=== PATIENT | female | born 1970 | race Caucasian/White ===

== ENCOUNTER 2016-08-27 01:08 | Emergency (ER) | payer OTHER ==
[2016-09-03] MEDS ORDERED: LORTAB 7.5-3251 EACH PO (10:36)
[2016-09-03] MEDS ORDERED: ZOFRAN4 MG PO (10:37)
[2016-09-03] MEDS ORDERED: DOCUSATE SODIU250 MG PO (16:51)
[2016-09-03] MEDS ORDERED: LOVENOX SY40 MG/0.4 SQ (16:52)
[2016-09-03] MEDS ORDERED: ZOFRAN 4 MG TAB4 MG PO (16:53)
[2016-09-03] MEDS ORDERED: PERCOCET 5-3251 EACH PO (16:54)
== END 2016-08-27 07:48 | disposition home or self-care (01) ==
LOC: ER1 01:08
DX: S82.851A Displaced trimalleolar fracture of right lower leg, initial encounter for closed fracture (principal); S92.251A Displaced fracture of navicular [scaphoid] of right foot, initial encounter for closed fracture; I48.91 Unspecified atrial fibrillation; F17.210 Nicotine dependence, cigarettes, uncomplicated; W10.9XXA Fall (on) (from) unspecified stairs and steps, initial encounter; Y93.01 Activity, walking, marching and hiking; Y92.009 Unspecified place in unspecified non-institutional (private) residence as the place of occurrence of the external cause
CPT/HCPCS: 29515; 73564; 73590; 73610; 73630; 73700; 93005; 96374; 96375; 96376; 99284; J2270; J2405

== ENCOUNTER 2016-08-30 11:21 | Emergency (ER) | payer OTHER ==
[2016-09-03] MEDS ORDERED: LORTAB 7.5-3251 EACH PO (10:36)
[2016-09-03] MEDS ORDERED: ZOFRAN4 MG PO (10:37)
[2016-09-03] MEDS ORDERED: DOCUSATE SODIU250 MG PO (16:51)
[2016-09-03] MEDS ORDERED: LOVENOX SY40 MG/0.4 SQ (16:52)
[2016-09-03] MEDS ORDERED: ZOFRAN 4 MG TAB4 MG PO (16:53)
[2016-09-03] MEDS ORDERED: PERCOCET 5-3251 EACH PO (16:54)
== END 2016-08-30 13:00 | disposition home or self-care (01) ==
LOC: ER1 11:21
DX: Z76.0 Encounter for issue of repeat prescription (principal); Z90.49 Acquired absence of other specified parts of digestive tract; S82.891A Other fracture of right lower leg, initial encounter for closed fracture; F17.210 Nicotine dependence, cigarettes, uncomplicated; X58.XXXA Exposure to other specified factors, initial encounter
CPT/HCPCS: 96372; 99281; J2270

== ENCOUNTER → 2016-09-02 | Outpatient (CLI) | payer OTHER ==
[~2016-09-02] MED LIST: DOCUSATE SODIU250 MG PO; LORTAB 7.5-3251 EACH PO; LOVENOX SY40 MG/0.4 SQ; PERCOCET 5-3251 EACH PO; ROXICODONE5 MG PO; ZOFRAN 4 MG TAB4 MG PO; ZOFRAN4 MG PO
[2016-09-02 11:54] LABS: BUN/CREATININE RATIO 15 (0-10)
== END ==
LOC: OPSV2 10:43
PROVIDERS: Orthopaedic Surgery
DX: Z01.818 Encounter for other preprocedural examination (principal); Z01.812 Encounter for preprocedural laboratory examination; S82.851A Displaced trimalleolar fracture of right lower leg, initial encounter for closed fracture
CPT/HCPCS: 36415; 71020; 80048

== ENCOUNTER → 2016-09-03 | Day surgery (SDC) | payer OTHER ==
[~2016-09-03] VITALS: Ht 162.6 cm; Wt 89.8 kg
== END | disposition home or self-care (01) ==
LOC: OR 09:00
PROVIDERS: Orthopaedic Surgery
PROC: 0QSG04Z Reposition Right Tibia with Internal Fixation Device, Open Approach (ICD-10-PCS; 2016-09-03)
PROC: 0SBF4ZZ Excision of Right Ankle Joint, Percutaneous Endoscopic Approach (ICD-10-PCS; 2016-09-03)
PROC: 0QSJ04Z Reposition Right Fibula with Internal Fixation Device, Open Approach (ICD-10-PCS; principal; 2016-09-03 11:30)
PROC: 0QSG04Z Reposition Right Tibia with Internal Fixation Device, Open Approach (ICD-10-PCS; 2016-09-03 11:30)
DX: S82.851A Displaced trimalleolar fracture of right lower leg, initial encounter for closed fracture (principal); G43.909 Migraine, unspecified, not intractable, without status migrainosus; F17.210 Nicotine dependence, cigarettes, uncomplicated; Z83.3 Family history of diabetes mellitus; Z79.891 Long term (current) use of opiate analgesic; Z79.899 Other long term (current) drug therapy; Z90.49 Acquired absence of other specified parts of digestive tract; Z90.710 Acquired absence of both cervix and uterus; Z98.890 Other specified postprocedural states
CPT/HCPCS: 73610; 76000; C1713; J0171; J0690; J1200; J2250; J2270; J2405; J2795; J3010; J7120

== ENCOUNTER 2016-09-04 01:48 | Observation (INO) | payer OTHER ==
[~2016-09-04] VITALS: Ht 162.6 cm; Wt 88.2 kg
[~2016-09-04 01:48] MED LIST changes: -ROXICODONE5 MG PO
[2016-09-04 04:52] LABS: HEMOGLOBIN 14.2 gm/dl (12.3-15.3); RED BLOOD COUNT 4.53 M/UL (4.00-5.10); WHITE BLOOD COUNT 14.8 K/UL (4.5-11.0)
[2016-09-04 05:20] LABS: BUN/CREATININE RATIO 13 (0-10)
[2016-09-04] MEDS ORDERED: ROXICODONE5 MG PO (13:03)
== END 2016-09-04 16:33 | disposition home or self-care (01) ==
LOC: ER1 01:48 → ZEROF 04:31 → M/S 04:31
PROVIDERS: Physician Assistant; ADMIT Orthopaedic Surgery
DX: G89.18 Other acute postprocedural pain (principal); M25.571 Pain in right ankle and joints of right foot; F17.210 Nicotine dependence, cigarettes, uncomplicated; Z90.710 Acquired absence of both cervix and uterus; Z98.890 Other specified postprocedural states
CPT/HCPCS: 80053; 85025; 96361; 96372; 96374; 96375; 96376; 99284; G0378; J1650; J2060; J2270; J2405

== ENCOUNTER → 2020-05-16 | Outpatient (CLI) | payer OTHER ==
[~2020-05-16] MED LIST changes: +ABILIFY5 MG PO; +BELSOMRA15 MG PO; +BUSPAR 10MG10 MG PO; +CLINDAMYCIN 150 MG PO; +KEFLEX CAP 500500 MG PO; +METOPROLOL TART25 MG PO; +NEURONTIN300 MG PO; +NITROSTAT 0.40.4 MG SL; +NITROSTAT0.4 MG SL; +NORCO 5-325 TA1 EACH PO; +RANOLAZINE ER500 MG PO; +ROXICODONE5 MG PO; +ST. JOSEPH ASPI81 M1 PO; +ZESTRIL20 MG PO
== END ==
LOC: HEART 5 08:30
DX: I11.9 Hypertensive heart disease without heart failure (principal); I20.9 Angina pectoris, unspecified; I48.91 Unspecified atrial fibrillation; R00.2 Palpitations; R93.1 Abnormal findings on diagnostic imaging of heart and coronary circulation; R94.39 Abnormal result of other cardiovascular function study
CPT/HCPCS: 78452; 93306; A9502

== ENCOUNTER → 2020-09-06 | Outpatient (CLI) | payer OTHER ==
[2020-09-06 12:59] LABS: HEMOGLOBIN 15.9 gm/dl (12.3-15.3); RED BLOOD COUNT 4.98 M/UL (4.00-5.10); WHITE BLOOD COUNT 10.1 K/UL (4.5-11.0)
== END ==
LOC: LAB 12:15
PROVIDERS: Internal Medicine Cardiovascular Disease
DX: R94.39 Abnormal result of other cardiovascular function study (principal); I20.9 Angina pectoris, unspecified; I10 Essential (primary) hypertension
CPT/HCPCS: 71046; 80048; 85025

== ENCOUNTER → 2020-09-10 | Outpatient (CLI) | payer OTHER | LOC: CATH 08:17 | DX: I20.8 Other forms of angina pectoris (principal); R94.39 Abnormal result of other cardiovascular function study; I10 Essential (primary) hypertension; I48.0 Paroxysmal atrial fibrillation; F41.9 Anxiety disorder, unspecified; F32.9 Major depressive disorder, single episode, unspecified; E66.9 Obesity, unspecified; Z68.41 Body mass index [BMI] 40.0-44.9, adult; Z87.891 Personal history of nicotine dependence; Z82.49 Family history of ischemic heart disease and other diseases of the circulatory system; Z88.6 Allergy status to analgesic agent; Z79.82 Long term (current) use of aspirin; Z79.899 Other long term (current) drug therapy | CPT/HCPCS: 99152; C1769; C1894; J1644; J2250; J3010; J7030; Q9967 ==

== ENCOUNTER → 2020-12-16 | Outpatient (CLI) | payer OTHER ==
[2020-12-17 08:14] LABS: HBSAG SCREEN Negative (Negative); HEP B CORE AB, TOT Negative (Negative)
[2020-12-17 11:14] LABS: HCV AB <0.1 (0.0-0.9); RHEUMATOID ARTHRITIS FACTOR 378.8 IU/mL (0.0-13.9)
[2020-12-17 14:14] LABS: ANGIOTENSIN-CONVERTING ENZYME 52 U/L (14-82)
[2020-12-19 06:10] LABS: QUANTIFERON MITOGEN VALUE 2.42 IU/mL (.); QUANTIFERON NIL VALUE 0.01 IU/mL (.); QUANTIFERON TB1 AG VALUE 0.03 IU/mL (.); QUANTIFERON TB2 AG VALUE 0.03 IU/mL (.); QUANTIFERON-TB GOLD PLUS Negative (Negative)
== END ==
LOC: LAB 13:12
PROVIDERS: Nurse Practitioner Family
DX: M79.643 Pain in unspecified hand (principal); M25.50 Pain in unspecified joint; M06.9 Rheumatoid arthritis, unspecified; Z11.59 Encounter for screening for other viral diseases; M25.842 Other specified joint disorders, left hand; M25.841 Other specified joint disorders, right hand; Z79.899 Other long term (current) drug therapy
CPT/HCPCS: 36415; 73130; 82164; 83520; 85652; 86140; 86200; 86431; 86704; 86803; 87340

== ENCOUNTER → 2021-03-18 | Outpatient (CLI) | payer OTHER | LOC: MAMO 14:58 | DX: Z12.39 Encounter for other screening for malignant neoplasm of breast (principal); Z84.81 Family history of carrier of genetic disease | CPT/HCPCS: 77063; 77067 ==

== ENCOUNTER 2021-04-24 17:44 | Emergency (ER) | payer OTHER ==
[2021-04-24 18:35] LABS: HEMOGLOBIN 14.3 gm/dl (12.3-15.3); RED BLOOD COUNT 4.55 M/UL (4.00-5.10)
[2021-04-24 18:52] LABS: BUN/CREATININE RATIO 12 (0-10)
[2021-04-24 20:08] LABS: HEMOGLOBIN 15.2 gm/dl (12.3-15.3); RED BLOOD COUNT 4.61 M/UL (4.00-5.10); WHITE BLOOD COUNT 12.7 K/UL (4.5-11.0)
[2021-04-24 20:27] LABS: BUN/CREATININE RATIO 13 (0-10)
[2021-04-24] MEDS ORDERED: IBUPROFEN800 MG PO (21:43)
[2021-04-24] MEDS ORDERED: CYCLOBENZAPRINE10 MG PO (21:43)
== END 2021-04-24 21:50 | disposition home or self-care (01) ==
LOC: ER1 17:44
PROVIDERS: Nurse Practitioner; Preventive Medicine Occupational Medicine
DX: S39.012A Strain of muscle, fascia and tendon of lower back, initial encounter (principal); I10 Essential (primary) hypertension; Z87.442 Personal history of urinary calculi; X58.XXXA Exposure to other specified factors, initial encounter
CPT/HCPCS: 72131; 80048; 80053; 81001; 83690; 85025; 85652; 86140; 96374; 96375; 99284; J1170; J1885; J2405; J7030

== ENCOUNTER 2021-06-18 16:00 | Emergency (ER) | payer OTHER ==
[~2021-06-18 16:00] MED LIST changes: +CYCLOBENZAPRINE10 MG PO; +IBUPROFEN800 MG PO
[2021-06-18 17:11] LABS: HEMOGLOBIN 14.5 gm/dl (12.3-15.3); RED BLOOD COUNT 4.66 M/UL (4.00-5.10); WHITE BLOOD COUNT 11.7 K/UL (4.5-11.0)
[2021-06-18 17:49] LABS: BUN/CREATININE RATIO 11 (0-10)
[2021-06-18] MEDS ORDERED: ASPIRIN81 MG PO (21:00)
== END 2021-06-18 21:08 | disposition home or self-care (01) ==
LOC: ER1 16:00
PROVIDERS: Physician Assistant
DX: R07.89 Other chest pain (principal); I10 Essential (primary) hypertension; F17.210 Nicotine dependence, cigarettes, uncomplicated
CPT/HCPCS: 71045; 80053; 82550; 82553; 83874; 84484; 85025; 93005; 99285